=== PATIENT | male | born 2000 | race Caucasian/White ===

== ENCOUNTER 2023-04-04 09:39 | Emergency (ER) | payer OTHER, SELFPAY ==
--- NOTE | ~2023-04-04 | CT_ITS ---
EXAMINATION: CT abdomen pelvis w con DATE: 04/04/2023 12:26 INDICATION: Right lower quadrant pain TECHNIQUE: Computed tomography (CT) of the abdomen and pelvis was performed with 100 cc Omnipaque 350 intravenous contrast. The dose-length product was 470.39 mGy-cm. Automated exposure control and iter ative reconstruction technique were employed. COMPARISON: None. FINDINGS: Heart size is normal. No significant pleural or pericardial effusion. No significant pleura l liver, spleen, pancreas, adrenal glands and kidneys are unremarkable. Gallbladder is present. There is a 4 mm distal right ureteral stone, image 142, with mild hydronephrosis. Fat-containing umbilical hernia. IMPRESSION: 1. Distal right ureteral stone measuring 4 mm with mild hydronephrosis. Reviewed, dictated and finalized at location L. CROP SUPERVISOR
[2023-04-04 10:30] VITALS: BP 159/87; PULSE 62; RESP 16; TEMP 36.1; O2SAT 100
[2023-04-04 11:50] LABS: Basophils Absolute Auto 0.1 K/mm3 (0.0-0.1); Basophils Percent Auto 0.3 % (0.2-1.2); Eosinophils Percent Auto 0.1 % (0-4.4); Hematocrit 46.1 % (42.0-52.0); Hemoglobin 15.4 g/dL (14.0-18.0); Immature Granulocyte Absolute 0.08 K/mm3 (0.00-0.031); Immature Granulocyte Percent A 0.5 % (0-0.5); Lymphocytes Absolute Auto 0.92 K/mm3 (0.9-3.2); Lymphocytes Percent Auto 6.2 % (18.3-44.2); Mean Corpuscular HGB Conc 33.4 g/dl (32-36); Mean Corpuscular Hemoglobin 29.4 pg (26-34); Mean Platelet Volume 10.4 fl (7.4-10.4); Monocytes Absolute Auto 0.9 K/mm3 (0.1-0.6); Monocytes Percent Auto 6.2 % (2.6-8.5); Neutrophils Absolute Auto 12.9 K/mm3 (1.3-6.7); Neutrophils Percent Auto 86.7 % (45.5-73.1); Platelet Count Result 272 k/mm3 (150-375); Red Blood Count 5.24 M/mm3 (4.6-6.20); Red Cell Distribution Width 12.9 % (11.5-14.5); White Blood Count 14.9 K/mm3 (4.5-10.0)
[2023-04-04 12:03] LABS: Alanine Aminotransferase 28 U/L (6-50); Albumin Level 4.9 g/dL (3.5-5.1); Alkaline Phosphatase 77 U/L (38-126); Anion Gap 9 mmol/L (8-16); Aspartate Amino Transferase 24 U/L (17-59); Bilirubin,Total 0.9 mg/dL (0.2-1.3); Blood Urea Nitrogen 16 mg/dL (9-20); Calcium 9.6 mg/dL (8.4-10.2); Carbon Dioxide 28 mmol/L (22-30); Chloride 104 mmol/L (98-107); Estimated CRCL calculation 140 ml/min; Estimated Glomerular Filt Rate > 60; Glucose 97 mg/dL (65-110); Lipase 48 U/L (23-300); Potassium 4.5 mmol/L (3.4-5.0); Sodium 141 mmol/L (137-145)
--- NOTE | 2023-04-04 12:20 | ED.ABDPAIN ---
HPI - Abdominal Pain General Chief Complaint: Abdominal Pain Stated Complaint: rlq pain Time Seen by Provider: 04/04/23 11:47 History of Present Illness HPI narrative: 23-year-old male presenting to the emergency department for evaluation of right lower quadrant pain that started approximately 9:00 a.m. this morning. Patient did have some associated nausea without vomiting. Patient had a bowel movement that was normal and this did not improve his pain. Upon arrival to the emergency department the patient was registration he states his pain began to improve. On time of evaluation and the patient room patient denies any current pain. Patient is resting comfortably. Patient denies any prior history of kidney stones and denies any prior history of abdominal surgeries. Related Data Allergies Allergy/AdvReac Type Severity Reaction Status Date / Time cefprozil [From Cefzil] AdvReac Rash Verified 04/04/23 12:33 Review of Systems Review of Systems: All systems reviewed & are unremarkable except as noted in HPI and below Exam Narrative: APPEARANCE: Well appearing, no pain, no distress, well-nourished. HEAD: normocephalic, atraumatic. EYES: PERRLA/EOMI, conjunctivae clear. NOSE: Normal no drainage NECK: Supple. No adenopathy, no masses. RESPIRATORY: Airway patent, respirations nonlabored. Clear to auscultation bilaterally, no rales, rhonchi, wheezing. CARDIOVASCULAR: Regular rate and rhythm without murmurs rubs or gallops. ABDOMINAL: Minimal right lower quadrant tenderness to palpation without rising sign, no rebound or guarding MUSCULOSKELETAL: Moves all extremities. Strength/ROM intact, No edema, No calf tenderness. NEURO: Alert. Cranial nerves II through XII intact. Grossly intact SKIN: Warm, dry. Normal Color Course Course Emergency Course: 23-year-old male present to the emergency department for evaluation of right lower quadrant pain. Patient is afebrile but does have a leukocytosis of 14.9 a stable hemoglobin of 15.4. Patient has no acute abnormalities on his CMP and has a normal lipase. The patient has elevated leukocytosis and right lower quadrant tenderness CT scan is being ordered to evaluate for appendicitis. UA is also pending. Patient and family were comfortable with plan for CT. CT scan showed a distal right ureteral stone measuring 4 mm with mild hydronephrosis. Patient reports his pain is significantly improved. Patient family were updated on the results of the imaging and plan for home treatment and follow-up. Vital Signs Vital signs: Vital Signs Temperature 97.0 F L 04/04/23 10:30 Pulse Rate 62 04/04/23 10:30 Respiratory Rate 16 04/04/23 10:30 Blood Pressure 159/87 H 04/04/23 10:30 Pulse Oximetry 100 04/04/23 10:30 Oxygen Delivery Room Air 04/04/23 10:30 Temperature 97.3 F L 04/04/23 14:36 Pulse Rate 82 04/04/23 14:36 Respiratory Rate 16 04/04/23 14:36 Blood Pressure 152/69 H 04/04/23 14:36 Pulse Oximetry 96 04/04/23 14:36 Oxygen Delivery Room Air 04/04/23 10:30 MDM - Abdominal Pain Differential Diagnosis Differential diagnosis: Likely abdominal pain, acute appendicitis, calculus of kidney, constipation, diverticulitis, gastroenteritis, pancreatitis and small bowel obstruction Lab Data Attestation: I reviewed the patient's lab results. 04/04/23 11:43 04/04/23 11:43 Labs: Lab Results 04/04/23 04/04/23 Range/Units 11:43 12:31 WBC 14.9 H (4.5-10.0) K/mm3 RBC 5.24 (4.6-6.20) M/mm3 Hgb 15.4 (14.0-18.0) g/dL Hct 46.1 (42.0-52.0) % MCV 88.0 (80-100) fl MCH 29.4 (26-34) pg MCHC 33.4 (32-36) g/dl RDW 12.9 (11.5-14.5) % Plt Count 272 (150-375) k/mm3 MPV 10.4 (7.4-10.4) fl Immature Gran % (Auto) 0.5 (0-0.5) % Neut % (Auto) 86.7 H (45.5-73.1) % Lymph % (Auto) 6.2 L (18.3-44.2) % [place] % (Auto) 6.2 (2.6-8.5) % Eos % (Auto) 0.1 (0-4.4) % Baso % (Auto) 0.3 (0.2-1.2)
[2023-04-04] MEDS: SODIUM CHLORIDE 0.9% IV 1,000 ML 999 ML IV CONT (12:35)
[2023-04-04 12:49] LABS: Appearance Urine Cloudy (Clear); Bacteria Urine None Seen /hpf; Bilirubin Urine Negative (Negative); Blood Urine 3+ (Negative); Color Urine Yellow (Yellow); Glucose Urine UA Negative (Negative); Ketones Urine Trace mg/dL (Negative); Leukocyte Esterase Ur Negative LEU/UL (Negative); Nitrate Urine Negative (Negative); Protein Urine 1+ mg/dL (Negative); RBC Urine >100 /hpf (0-2); Specific Grav Ur 1.027 (1.001-1.035); Squamous Epithelial Cell Urine None seen /hpf (Few); Urobilinogen Urine 0.2 mg/dL (<2.0); WBC Urine 0-5 /hpf; pH Urine 6.5 (5.0-9.0)
[2023-04-04 12:56] LABS: Add Urine Microscopic? YES
[2023-04-04 14:36] VITALS: BP 152/69; PULSE 82; RESP 16; TEMP 36.3; O2SAT 96
== END 2023-04-04 14:41 | disposition home or self-care (01) ==
PROVIDERS: Emergency Provider Emergency Medicine
DX: N13.2 Hydronephrosis with renal and ureteral calculous obstruction (principal)
CPT/HCPCS: 36415; 74177; 80053; 81001; 83690; 85025; 96360; 99284; J7030; Q9967

== ENCOUNTER 2023-04-19 16:28 | Observation (INO) | payer OTHER, SELFPAY ==
--- NOTE | ~2023-04-19 | CT_ITS ---
EXAMINATION: CT abdomen pelvis wo con DATE: 04/19/2023 17:47 INDICATION: Right flank pain. Nausea and vomiting. Dysuria. TECHNIQUE: Computed tomography (CT) of the abdomen and pelvis was performed without intravenous contr ast. Automated exposure control and iterative reconstruction technique were employed. The dose-length product was 249.21 mGy-cm. COMPARISON: CT abdomen pelvis 04/04/23 FINDINGS: The visualized portions of the lung bases are clear without pneumonia or pleural effusion. The heart size is normal. No pericardial effusion. The liver, gallbladder, spleen, pancreas, and adre nal glands are normal. There is mild right hydronephrosis and hydroureter. There is a 4 mm stone in d istal right ureter. Left kidney is normal. There are no pathologically enlarged lymph nodes. There is no free intraperitoneal fluid. There is a supraumbilical ventral hernia containing fat. There is 3 m m anterolisthesis of L5 on S1. There are chronic bilateral L5 pars defects. IMPRESSION: 1. 4 mm stone in distal right ureter with mild right hydronephrosis and hydroureter. 2. Supraumbilical ventral hernia containing fat. Reviewed, dictated and finalized at location E. ECHNICAL LABORATORY TECHNICIAN IMPRESSION: 1. 4 mm stone in distal right ureter with mild right hydronephrosis and hydrour eter. 2. Supraumbilical ventral hernia containing fat.
--- NOTE | ~2023-04-19 | XR_ITS ---
EXAMINATION: XR retrograde pyelo w/stent RT DATE: 04/20/2023 12:55 INDICATION: Right ureteral stone. TECHNIQUE: 6 intraoperative fluoroscopic views of the abdomen and pelvis were obtained. I was not pre sent. Fluoroscopy exposure time was 10 seconds. COMPARISON: CT abdomen and pelvis 04/19/2023 FINDINGS: The right-sided retrograde pyelogram is unremarkable. The final images demonstrate a right internal ureteral stent in expected position. IMPRESSION: 1. Right internal ureteral stent in expected position. Reviewed, dictated and finalized at location E. ACE FEEDER
[2023-04-19 16:39] VITALS: BP 148/70; PULSE 71; RESP 17; TEMP 36.6; O2SAT 98
[2023-04-19 17:07] LABS: Alanine Aminotransferase 25 U/L (6-50); Albumin Level 5.2 g/dL (3.5-5.1); Alkaline Phosphatase 69 U/L (38-126); Anion Gap 10 mmol/L (8-16); Aspartate Amino Transferase 26 U/L (17-59); Bilirubin,Total 1.6 mg/dL (0.2-1.3); Blood Urea Nitrogen 16 mg/dL (9-20); Calcium 10.3 mg/dL (8.4-10.2); Carbon Dioxide 29 mmol/L (22-30); Chloride 99 mmol/L (98-107); Estimated CRCL calculation 88 ml/min; Estimated Glomerular Filt Rate > 60; Glucose 93 mg/dL (65-110); Lipase 31 U/L (23-300); Potassium 4.3 mmol/L (3.4-5.0); Sodium 138 mmol/L (137-145)
[2023-04-19 17:10] VITALS: BP 135/120; PULSE 70; RESP 18; O2SAT 98
[2023-04-19 17:13] LABS: Basophils Absolute Auto 0.1 K/mm3 (0.0-0.1); Basophils Percent Auto 0.4 % (0.2-1.2); Eosinophils Percent Auto 0.1 % (0-4.4); Hematocrit 44.5 % (42.0-52.0); Immature Granulocyte Absolute 0.05 K/mm3 (0.00-0.031); Immature Granulocyte Percent A 0.4 % (0-0.5); Lymphocytes Absolute Auto 1.19 K/mm3 (0.9-3.2); Lymphocytes Percent Auto 9.2 % (18.3-44.2); Mean Corpuscular HGB Conc 33.7 g/dl (32-36); Mean Corpuscular Hemoglobin 29.5 pg (26-34); Mean Corpuscular Volume 87.4 fl (80-100); Mean Platelet Volume 10.8 fl (7.4-10.4); Monocytes Absolute Auto 1.4 K/mm3 (0.1-0.6); Monocytes Percent Auto 10.9 % (2.6-8.5); Neutrophils Absolute Auto 10.3 K/mm3 (1.3-6.7); Platelet Count Result 278 k/mm3 (150-375); Red Blood Count 5.09 M/mm3 (4.6-6.20); Red Cell Distribution Width 12.9 % (11.5-14.5)
[2023-04-19 17:28] LABS: Appearance Urine Clear (Clear); Bilirubin Urine Negative (Negative); Blood Urine Negative (Negative); Color Urine Yellow (Yellow); Glucose Urine UA Negative (Negative); Ketones Urine Trace mg/dL (Negative); Leukocyte Esterase Ur Negative LEU/UL (Negative); Nitrate Urine Negative (Negative); Protein Urine Negative (Negative); Specific Grav Ur 1.002 (1.001-1.035); Urobilinogen Urine 0.2 mg/dL (<2.0); pH Urine 6.5 (5.0-9.0)
--- NOTE | 2023-04-19 17:39 | ED.ABDPAIN ---
HPI - Abdominal Pain General Chief Complaint: Back Pain/Injury <Syl Luciano PA-C - Last Filed: 04/19/23 18:58> Stated Complaint: R sided flank pain <BISI Sigala Last Filed: 04/19/23 18:58> Time Seen by Provider: 04/19/23 17:34 <BISI Sigala Last Filed: 04/19/23 18:58> Source: patient <BISI Sigala Last Filed: 04/19/23 18:58> Mode of arrival: ambulatory <BISI Sigala Last Filed: 04/19/23 18:58> Limitations: no limitations <BISI Sigala Last Filed: 04/19/23 18:58> History of Present Illness HPI narrative: This is a 23 year old male that presents to the ER for ongoing right lower abdominal pain. Reports he was diagnosed with a kidney stone about 2 weeks ago. He has had persistent pain since. He has his follow up appointment with Urology next week. Denies fever, vomiting, dysuria or hematuria. <BISI Sigala Last Filed: 04/19/23 18:58> Related Data Allergies/Adverse Reactions: Allergies Allergy/AdvReac Type Severity Reaction Status Date / Time cefprozil [From Cefzil] AdvReac Rash Verified 04/19/23 16:42 <BISI Sigala Last Filed: 04/19/23 18:58> Review of Systems Review of Systems: CONSTITUTIONAL: Denies fever GASTROINTESTINAL: Reports abdominal pain. Denies nausea, vomiting GENITOURINARY: Denies dysuria or hematuria. <BISI Sigala Last Filed: 04/19/23 18:58> All systems reviewed & are unremarkable except as noted in HPI and below <Syl Luciano PA-C - Last Filed: 04/19/23 18:58> [facility] Past Medical History Medical History: Medical History Flank pain No active medical problems <Syl Luciano PA-C - Last Filed: 04/19/23 18:58> Social History Social History: Social History Smoking status: Never smoker Alcohol intake: current Drinks per week: 2 Substance use: never Do You Feel Safe in your Home?: Yes Lack of Transportation: No Lack of Food: Never True Current Housing: I Have Housing Concerned About Future Housing: No Difficulty Paying Gas/Electric Bills: No Difficulty Paying for Meds: No Currently Unemployed: No Education: Associate Degree Difficulty w/ Childcare or Family Care: No Spiritual care concerns: No <Syl Luciano PA-C - Last Filed: 04/19/23 18:58> Exam Narrative: GENERAL: Well-appearing, well-nourished, and in no acute distress. HEAD: Normocephalic, atraumatic. EYES: EOMI. CHEST: Clear to auscultation. No respiratory distress. No wheezes rales or rhonchi HEART: Regular rate and rhythm. No murmur heard. Normal peripheral pulses. ABDOMEN: Soft, nontender, nondistended, normal active bowel sounds. No CVA tenderness EXTREMITIES: Normal range of motion. No edema. SKIN: Warm, dry, no rash. NEURO: No focal deficits. Alert and oriented x3. PSYCH: Normal mood and affect <Syl Luciano PA-C - Last Filed: 04/19/23 18:58> Course Course Emergency Course: Patient and family updated on workup and given option of inpatient versus outpatient treatment. He prefers to stay for further management <Syl Luciano PA-C - Last Filed: 04/19/23 18:58> PHARMACY ACCOUNT DIRECTOR/PA Physician Supervision For this patient encounter, I reviewed the PHARMACY ACCOUNT DIRECTOR or PA documentation, treatment plan, and medical decision making and/or I had [id number] time with this patient. I performed all aspects of the MDM as documented. <Raina Medrano MD - Last Filed: 04/23/23 16:30> Consultations Consultation #1: Spoke with Urology, Dr. Womack about patient and workup. Patient given option of further inpatient versus outpatient treatment. <Syl Luciano PA-C - Last Filed: 04/19/23 18:58> Date: 04/19/23 <Syl Luciano PA-C - Last Filed: 04/19/23 18:58> Consultation #2: Spoke with hospitalist about patient and workup wh
[2023-04-19 17:42] LABS: Add Urine Microscopic? NO
[2023-04-19] MEDS: SODIUM CHLORIDE 0.9% IV 1,000 ML 999 ML IV CONT (17:59)
[2023-04-19] MEDS: SODIUM CHLORIDE 0.9% IV 1,000 ML 125 ML IV CONT (19:08)
[2023-04-19 19:09] VITALS: BP 147/87; PULSE 86; RESP 18; O2SAT 100
--- NOTE | 2023-04-19 21:02 | ADMGEN ---
This patient, Brent Yeung, was admitted to 3 [facility] Surg Room 330-02. Patient/family oriented to hospital policies and general routines including ID bracelet, bed and alarms, visiting hours, pain management, procedures, bathroom and other care routines, personal items, smoking policy, room service/diet, and visiting hours. Information on how to activate the Rapid Response Team has been discussed. Patient/Family are encouraged to report perceived risks to care and to ask questions if they do not understand what they are told or what they should do.
--- NOTE | 2023-04-19 21:12 | PM.IMHP ---
H&P: HPI History of Present Illness Date/Time: 04/19/23 21:12 Chief Complaint: Flank pain Narrative: This is a 23-year-old male with no significant past medical history presents to the emergency room due to right flank pain patient had been diagnosed with kidney stone and was sent home however returned due to intractable flank pain. Patient denies any fevers rigors or chills. Patient has been admitted for further evaluation management and treatment. EXAMINATION: CT abdomen pelvis wo con DATE: 04/19/2023 17:47 INDICATION: Right flank pain. Nausea and vomiting. Dysuria. TECHNIQUE: Computed tomography (CT) of the abdomen and pelvis was performed without intravenous contrast. Automated exposure control and iterative reconstruction technique were employed. The dose-length product was 249.21 mGy-cm. COMPARISON: CT abdomen pelvis 04/04/23 FINDINGS: The visualized portions of the lung bases are clear without pneumonia or pleural effusion. The heart size is normal. No pericardial effusion. The liver, gallbladder, spleen, pancreas, and adrenal glands are normal. There is mild right hydronephrosis and hydroureter. There is a 4 mm stone in distal right ureter. Left kidney is normal. There are no pathologically enlarged lymph nodes. There is no free intraperitoneal fluid. There is a supraumbilical ventral hernia containing fat. There is 3 mm anterolisthesis of L5 on S1. There are chronic bilateral L5 pars defects. IMPRESSION: 1. 4 mm stone in distal right ureter with mild right hydronephrosis and hydroureter. 2. Supraumbilical ventral hernia containing fat. Review of Systems Review of Systems: Right flank pain Constitutional: Constitutional: Denies chills, Denies fatigue, Denies fever(s), Denies malaise and Denies night sweats Eyes: Eyes: Denies change in vision ENT: Denies dysphagia and Denies odynophagia Cardiovascular: Cardiovascular: Denies chest pain, Denies radiating jaw, neck or arm pain and Denies palpitations Respiratory: Respiratory: Denies cough and Denies dyspnea Gastrointestinal: Gastrointestinal: Denies abdominal pain, Denies dyspepsia, Denies heartburn, Denies diarrhea, Denies nausea and Denies vomiting Genitourinary: Genitourinary: Denies dysuria and Reports flank pain (right) Musculoskeletal: Musculoskeletal: Denies back pain, Denies arthralgias, Denies joint swelling and Denies muscle weakness Integumentary/Breasts: Skin/Breast: Denies rash Neurologic: Denies focal weakness and Denies Sensory deficit (Neuro) Psychiatric: Psychiatric: Reports no additional psychiatric complaints and Reports as per HPI Endocrine: Endocrine: Denies cold intolerance, Denies flushing, Denies heat intolerance, Denies polyphagia, Denies polydipsia and Denies palpitations Hematologic/Lymphatic: Hematologic/Lymphatic: Reports no additional hematologic/lymphatic complaints and Reports as per HPI Allergic/Immunologic: Allergic/Immunologic: Reports no additional allergic/immunologic complaints and Reports as per HPI PMFSH Past Medical History Medical History (Updated 04/20/23 @ 03:49 by Papa De Leon MD) Flank pain No active medical problems Social History Social History (Updated 04/19/23 @ 17:39 by Syl Luciano PA-C) Smoking status: Never smoker Alcohol intake: current Drinks per week: 2 Substance use: never Do You Feel Safe in your Home?: Yes Lack of Transportation: No Lack of Food: Never True Current Housing: I Have Housing Concerned About Future Housing: No Difficulty Paying Gas/Electric Bills: No Difficulty Paying for Meds: No Currently Unemployed: No Education: Associate Degree Difficulty w/ Childcare or Family Care: No Spiritual care concerns: No Meds Home Medications and Allergies Home Medications Medication Instructions Recorded Confirmed Type No Home Medications 04/19/23 04/19/23 History Allergies Allergy/AdvReac Type Severity Reaction Status Da
[2023-04-19] MEDS: MORPHINE SULFATE (*CRX) 4 MG/ML INJ IV PUSH (21:39)
[2023-04-19 21:45] VITALS: BP 156/85; PULSE 66; RESP 16; TEMP 36.3; O2SAT 98
[2023-04-20] VITALS (12 sets, daily range): BP systolic 109–135; BP diastolic 56–83; PULSE 64–94; RESP 15–20; TEMP 36.4–37.5; O2SAT 95–100; BMI 25.3
[2023-04-20] MEDS: SODIUM CHLORIDE 0.9% IV 1,000 ML 125 ML IV CONT ×2 (02:28→10:23)
[2023-04-20] MEDS: HYDROmorphone HCL INJ (*CRX) 1 MG/ML SYR IV PUSH (03:24)
--- NOTE | 2023-04-20 07:49 | WPDURCON ---
Assessment and Plan Assessment and plan (1) Ureterolithiasis: Code(s): N20.1 - Calculus of ureter Status: Acute Assessment and Plan: Abdomen is had 2 trips to the emergency room for this port a 5 mm distal right ureteral stone. He would like to proceed with definitive therapy. As such will proceed with cysto, right retrograde pyelogram, right ureteroscopy with stone extraction, possible laser, stent placement later this afternoon Urology Consult Note HPI Date Seen: 04/20/23 Time Seen: 07:49 Requesting Physician: ANGELLA Souza Primary Care Provider: SCARRER PHYSICIAN Consult Narrative Reason for consult: Distal right ureteral calculus with colic Narrative: Brent Yeung is a 23 year old male who was admitted after his 2nd trip to the emergency room. He was found have a 4 mm distal right ureteral stone. Patient has been having intermittent pain from the [place] [address] and has had a slight bump in his creatinine to 1.3. Urinalysis is negative. Patient has not had any prior stones. He has also not passed a stone since he has been admitted. Review of Systems Review of Systems: All systems reviewed & are unremarkable except as noted in HPI and below Respiratory: Respiratory: Reports no additional respiratory complaints PMFSH Past Medical History Medical History Flank pain No active medical problems Social History Social History Smoking status: Never smoker Alcohol intake: current Drinks per week: 2 Substance use: never Do You Feel Safe in your Home?: Yes Lack of Transportation: No Lack of Food: Never True Current Housing: I Have Housing Concerned About Future Housing: No Difficulty Paying Gas/Electric Bills: No Difficulty Paying for Meds: No Currently Unemployed: No Education: Associate Degree Difficulty w/ Childcare or Family Care: No Spiritual care concerns: No Meds Home Medications and Allergies Home Medications Medication Instructions Recorded Confirmed Type No Home Medications 04/19/23 04/19/23 History Allergies Allergy/AdvReac Type Severity Reaction Status Date / Time cefprozil [From Cefzil] AdvReac Rash Verified 04/19/23 16:42 Vital Signs Vital Signs - 24 hr 04/19/23 16:39 04/19/23 17:10 04/19/23 19:09 Temperature 36.6 C Pulse Rate 71 70 86 Respiratory Rate 17 18 18 Blood Pressure 148/70 H 135/120 H 147/87 H Pulse Oximetry 98 98 100 Oxygen Delivery Room Air 04/19/23 21:45 04/20/23 04:55 Temperature 36.3 C L 36.5 C Pulse Rate 66 75 Respiratory Rate 16 16 Blood Pressure 156/85 H 126/67 Pulse Oximetry 98 95 Oxygen Delivery Exam Const: General: cooperative, healthy appearing and no acute distress Resp: Effort & Inspection: normal respiratory effort Cardio: Rate: regular rate Rhythm: regular rhythm Results Labs 04/19/23 16:49 04/19/23 16:50 Labs: Short CBC 04/19/23 Range/Units 16:49 WBC 13.0 H (4.5-10.0) K/mm3 Hgb 15.0 (14.0-18.0) g/dL Hct 44.5 (42.0-52.0) % Plt Count 278 (150-375) k/mm3 BMP 04/19/23 16:50 Sodium 138 Potassium 4.3 Chloride 99 Carbon Dioxide 29 BUN 16 Creatinine 1.30 Glucose 93 Calcium 10.3 H Liver Function 04/19/23 Range/Units 16:50 Total Bilirubin 1.6 H (0.2-1.3) mg/dL AST 26 (17-59) U/L ALT 25 (6-50) U/L Alkaline Phosphatase 69 (38-126) U/L Albumin 5.2 H (3.5-5.1) g/dL Urine 04/19/23 Range/Units 16:50 Urine Color Yellow (Yellow) Urine Appearance Clear (Clear) Urine pH 6.5 (5.0-9.0) Ur Specific [place] 1.002 (1.001-1.035) Urine Protein Negative (Negative) mg/dL Urine Glucose (UA) Negative (Negative) mg/dL
--- NOTE | 2023-04-20 07:51 | WPDHPUPDATE1 ---
History and Physical Update Update Date/Time: 04/20/23 07:51 History and Physical has been reviewed, including an updated exam of the patient. There are NO changes in the patient's condition. Risks, benefits, and alternatives have been discussed and questions answered. Patient agrees to proceed with procedure.
[2023-04-20] MEDS: LACTATED RINGERS 1,000 ML 30 ML IV CONT (11:35)
--- NOTE | 2023-04-20 11:40 | WPDANESEPPF ---
Anes - Initial Pre Proc Eval Procedure: Operation Date: 04/20/23 12:30 Proposed Procedures p Cystoscopy with Right Stent Placement, Possible Right Ureteroscopy, Possible Right Retrograde Pyelogram, Possible Right Stone Extraction, Possible Holmium Laser - Howard Rodríguez MD Date/Time: 04/20/23 11:40 Surgeon: ANGELLA Souza Pre Op Diagnosis: Ureterolithiasis Patient Data Age: 23 Gender: M Height: 1.83 m Weight: 84.8 kg Last Vital Signs Temp 36.5 C 04/20/23 04:55 Pulse 75 04/20/23 04:55 Resp 16 04/20/23 04:55 BP 126/67 04/20/23 04:55 Pulse Ox 95 04/20/23 08:00 O2 Del Method Room Air 04/20/23 08:00 Allergies Allergy/AdvReac Type Severity Reaction Status Date / Time cefprozil [From Cefzil] AdvReac Rash Verified 04/19/23 16:42 Home Medications Medication Instructions Recorded Confirmed Type No Home Medications 04/19/23 04/19/23 History Laboratory Tests 04/19/23 04/19/23 16:49 16:50 WBC 13.0 H K/mm3 (4.5-10.0) RBC 5.09 M/mm3 (4.6-6.20) Hgb 15.0 g/dL (14.0-18.0) Hct 44.5 % (42.0-52.0) MCV 87.4 fl (80-100) MCH 29.5 pg (26-34) MCHC 33.7 g/dl (32-36) RDW 12.9 % (11.5-14.5) Plt Count 278 k/mm3 (150-375) MPV 10.8 H fl (7.4-10.4) Immature Gran % (Auto) 0.4 % (0-0.5) Neut % (Auto) 79.0 H % (45.5-73.1) Lymph % (Auto) 9.2 L % (18.3-44.2) [place] % (Auto) 10.9 H % (2.6-8.5) Eos % (Auto) 0.1 % (0-4.4) Baso % (Auto) 0.4 % (0.2-1.2) Lymph # (Auto) 1.19 K/mm3 (0.9-3.2) [place] # (Auto) 1.4 H K/mm3 (0.1-0.6) Eos # (Auto) 0.0 K/mm3 (0-0.3) Baso # (Auto) 0.1 K/mm3 (0.0-0.1) Abs Immat Gran (auto) 0.05 H K/mm3 (0.00-0.031) Absolute Neuts (auto) 10.3 H K/mm3 (1.3-6.7) Absolute Nucleated RBC 0.0 K/mm3 (0.0-0.012) Nucleated RBC % 0.0 % (0.0-0.2) Sodium 138 mmol/L (137-145) Potassium 4.3 mmol/L (3.4-5.0) Chloride 99 mmol/L (98-107) Carbon Dioxide 29 mmol/L (22-30) Anion Gap 10 mmol/L (8-16) BUN 16 mg/dL (9-20) Creatinine 1.30 mg/dL (0.7-1.3) Estim Creat Clear Calc 88 ml/min Estimated GFR > 60 (59 - ) Glucose 93 mg/dL (65-110) Calcium 10.3 H mg/dL (8.4-10.2) Total Bilirubin 1.6 H mg/dL (0.2-1.3) AST 26 U/L (17-59) ALT 25 U/L (6-50) Alkaline Phosphatase 69 U/L (38-126) Total Protein 9.0 H g/dL (6.3-8.2) Albumin 5.2 H g/dL (3.5-5.1) Lipase 31 U/L (23-300) Urine Color Yellow (Yellow) Urine Appearance Clear (Clear) Urine pH 6.5 (5.0-9.0) Ur Specific [place] 1.002 (1.001-1.035) Urine Protein Negative mg/dL (Negative) Urine Glucose (UA) Negative mg/dL (Negative) Urine Ketones Trace H mg/dL (Negative) Ur Blood (Man) Negative (Negative) Urine Nitrate Negative (Negative) Urine Bilirubin Negative (Negative) Urine Urobilinogen 0.2 mg/dL (<2.0) Leukocyte Esterase Rfl Negative MIGUEL/UL (Negative) Patient hx anesthesia problems: none Family hx anesthesia problems: none Results Review: All pre-operative results and documents have been reviewed as part of the pre-operative evaluation. [facility] Past Medical History Medical History Flank pain No active medical problems Social History Social History Smoking status: Never smoker Alcohol intake: current Drinks per week: 2 Substance use: never Do You Feel Safe in your Home?: Yes Lack of Transportation: No Lack of Food: Never True Current Housing: I Have Housing Concerned About Future Housing: No Difficulty Paying Gas/Electric Bills: No
[2023-04-20] MEDS: LIDOCAINE HCL 2% GEL UROJET 10 ML PKG MUCOUS MEM (12:46)
[2023-04-20] MEDS: levoFLOXacin 500 MG/D5W 100 ML 500 MG/100 ML BAG 100 MG IVPB (12:47)
--- NOTE | 2023-04-20 12:59 | W.PM.PROC2 ---
Procedure Note - Detailed Date of Procedure 04/20/23 Pre-op Diagnosis Right ureteral calculus Post-op Diagnosis Same Procedure Performed Cystoscopy, right retrograde, right ureteroscopy with stone extraction, right ureteral stent placement 4.8 Croatian contour Surgeon Howard Rodríguez MD Anesthesia General Description of Procedure Patient was taken to the operative suite correctly identified. Once anesthesia was obtained was placed in dorsal lithotomy position and prepped and draped usual sterile fashion. Twenty-two Croatian scope was inserted in the bladder. Prostate is nonobstructing. The bladder was without any evidence of tumors. The right ureteral orifice was cannulated with a guidewire. I dilated the orifice with an 8/10 dilator. Rigid ureteral scope was inserted the stone was visualized and grasped with an escape basket removed in its entirety. Reinspection of the distal ureter revealed no residual stone. Pyelogram was then performed to confirm placement of the stent. 4.8 Croatian contour stent was then placed with the proximal end coiled in the right renal pelvis and the distal in the bladder. Bladder was drained. 2% viscous lidocaine was inserted into the urethra patient is taken recovery stable condition. He will be discharged home later today from my standpoint follow up in a week for stent removal. This completes dictation. Please send a copy of this to my office. Estimated Blood Loss 0 Urine Output 900 Drains Yes Packing No Pathology Yes Complications No immediate complications Condition Stable Disposition PACU
--- NOTE | 2023-04-20 13:47 | PM.DS ---
DS: Admitting Diagnosis Discharge Date 04/20/2023 Admitting Diagnosis Ureterolithiasis DS: Discharge Diagnosis Discharge Diagnosis (1) Ureterolithiasis: Code(s): N20.1 - Calculus of ureter Status: Acute Assessment and Plan: Admit to regular medical floor Supportive care Pain management IV fluids Urology consult CT abdomen and pelvis reviewed 04/20/23: Pt to OR with Urology today and stent was placed by Dr. Rodríguez after stone extraction. OK to discharge from Urology standpoint with follow up with them in 1 week for stent removal. (2) Flank pain: Code(s): R10.9 - Unspecified abdominal pain Status: Acute Assessment and Plan: As above DS: Summary Hospital Course Reason for hospitalization: Ureterolithiasis Hospital Course: This very pleasant 23 year old male pt with no PMH presented and was subsequently admitted to the hospital after having increased right flank pain with a known ureteral stone on the right side. CT showed mild right sided hydroureter and hydronephrosis. He was admitted for pain control and Urology consulted. He was taken to the OR today by Dr. Rodríguez and pt underwent a cystoscopy, right retrograde and right ureteroscopy with stone extraction, right ureteral stent placement of a 4.8 korean contour stent. His procedure was uneventful and is stable for discharge to home at this time. All questions were answered to pt's satisfaction prior to discharge. Status at Discharge Cognitive/behavioral status at discharge: At baseline Functional status at discharge: independent ambulation Overall status at discharge: patient is back to baseline Time Spent with Patient Time attestation: Total time spent providing and/or coordinating discharge services: Time spent: Greater than 30 minutes Specific discharge activities: Follow up, pain control and what to expect post procedure. Exam Narrative: CONSTITUTIONAL: Pleasant, male pt in no distress at this time. Appears comfortable. HEENT: Atraumatic and normocephalic. Patent oropharynx and MMM. EYES: PERRLA, EOM's intact NECK: Supple with FROM and no LN RESPIRATORY: CTAB in all [place]. CARDIAC: RRR, S1 and S2 present. No S3, S4, m,r,g,h or displacement of PMI GI: Soft, NT, BS present x4 quads SKIN: Clear, without lesion or rash. NEURO: Non-focal exam and alert and oriented x4 EXTREMITIES: FROM of all extremities without deficit. PSYCH: Appropriate affect and attitude. DS: Data Data Completed and Pending Completed studies during hospitalization: ITS Impressions Abdomen/Pelvis CT 04/19/23 17:48 IMPRESSION: 1. 4 mm stone in distal right ureter with mild right hydronephrosis and hydroureter. 2. Supraumbilical ventral hernia containing fat. Pending studies at discharge: Pending at discharge 04/20/23 12:50 Surgical [PTH] Routine Labs on day of discharge: Labs from last 24 hours 04/19/23 04/19/23 16:50 16:49 WBC 13.0 H RBC 5.09 Hgb 15.0 Hct 44.5 MCV 87.4 MCH 29.5 MCHC 33.7 RDW 12.9 Plt Count 278 MPV 10.8 H Immature Gran % (Auto) 0.4 Neut % (Auto) 79.0 H Lymph % (Auto) 9.2 L Stewart % (Auto) 10.9 H Eos % (Auto) 0.1 Baso % (Auto) 0.4 Lymph # (Auto) 1.19 Stewart # (Auto) 1.4 H Eos # (Auto) 0.0 Baso # (Auto) 0.1 Abs Immat Gran (auto) 0.05 H Absolute Neuts (auto) 10.3 H Absolute Nucleated RBC 0.0 Nucleated RBC % 0.0 Sodium 138 Potassium 4.3 Chloride 99 Carbon Dioxide 29 Anion Gap 10 BUN 16 Creatinine 1.30 Estim Creat Clear Calc 88 Estimated GFR > 60 Glucose 93 Calcium 10.3 H Total Bilirubin 1.6 H AST 26 ALT 25 Alkaline Phosphatase 69 Total Protein 9.0 H Albumin 5.2 H Lipase 31 Urine Color Yellow Urine Appearance Clear Urine pH 6.5 Ur Specific [place] 1.002 Urine Protein Negative Urine Glucose (UA) Negative Urine Ketones Trace H Ur Blood (Man) Negative Urine Nitrate Negative Urine Bili
== END 2023-04-20 16:16 | disposition home or self-care (01) ==
LOC: ANHED 18:58 → ANH3MEDSUR 19:31
PROVIDERS: Emergency Medicine; Urology; Admitting Provider Internal Medicine; Emergency Provider Physician Assistant; Visit Provider Nurse Practitioner Adult Health
PROC: (CPT 52352; principal; 2023-04-20 12:30)
DX: N13.2 Hydronephrosis with renal and ureteral calculous obstruction (principal); K43.9 Ventral hernia without obstruction or gangrene; E86.0 Dehydration; F10.90 Alcohol use, unspecified, uncomplicated
CPT/HCPCS: 52332; 52352; 36415; 74176; 74420; 80053; 81003; 82365; 83690; 85025; 88300; 96361; 96374; 99285; C1769; C2617; G0378; J1100; J1170; J1956; J2001; J2250; J2270; J2405; J2704; J3010; J7030; J7120; Q9966